=== PATIENT | female | born 1990 | race Caucasian/White ===

== ENCOUNTER → 2021-03-03 13:11 | Outpatient (BNVA) | payer OTHER, SELFPAY | PROVIDERS: PCP Family Medicine Adult Medicine; Visit Provider Physician Assistant Medical | DX: Z57.5 Occupational exposure to toxic agents in other industries (principal) | CPT/HCPCS: 99202 ==

== ENCOUNTER → 2021-03-04 14:23 | Outpatient (BNVA) | payer OTHER, SELFPAY | PROVIDERS: PCP Family Medicine Adult Medicine; Visit Provider Physician Assistant Medical | DX: Z57.5 Occupational exposure to toxic agents in other industries (principal) | CPT/HCPCS: 99213 ==

== ENCOUNTER 2023-01-21 12:57 | Emergency (ER) | payer OTHER, SELFPAY ==
[2023-01-21 13:27] VITALS: BP 141/84; PULSE 89; RESP 19; TEMP 36.6; O2SAT 100; BMI 26.8
--- NOTE | 2023-01-21 13:27 | ED.GENADULT ---
HPI - General Adult General Chief complaint: Allergic Reaction <Lewis Ridley - Last Filed: 01/21/23 13:29> Stated complaint: Allergic reaction /Itchy racing heart <Lewis Ridley - Last Filed: 01/21/23 13:29> Time Seen by Provider: 01/21/23 13:52 <Lewis Ridley - Last Filed: 01/21/23 13:29> History of Present Illness HPI narrative: Patient presents out of concern for an allergic reaction, she developed tingling around her lips and face and felt like it might be starting to swell and she took a Benadryl and came to the ER, she never had swelling of lips tongue or throat never had any difficulty breathing or swallowing, she did feel like her heart was racing Here in the ER she does not feel heart racing she has not developed any swelling or shortness of breath or impairment of breathing and swallowing but she continues to feel and itchiness and tingling around her lips <MAXIME Price - Last Filed: 01/21/23 19:25> Related Data Home medications: Previous Rx's Medication Instructions Recorded cetirizine 10 mg tablet 10 mg PO DAILY PRN allergy 01/21/23 symptoms #14 tabs prednisone 20 mg tablet 40 mg PO ONCE 1 day #2 tabs 01/21/23 <Lewis Ridley - Last Filed: 01/21/23 13:29> Allergies/adverse reactions: Allergies Allergy/AdvReac Type Severity Reaction Status Date / Time No Known Allergies Allergy Verified 01/21/23 13:26 <Lewis Ridley - Last Filed: 01/21/23 13:29> FOR[facility]LY [facility] Past Medical History Source: nursing notes reviewed <MAXIME Price - Last Filed: 01/21/23 19:25> Social History Social History: Social History Advance Directives: No Advance Directives Information Provided: No <Lewis Ridley - Last Filed: 01/21/23 13:29> Physical Exam ED Vital Signs: Vital Signs - 24 hr 01/21/23 13:27 01/21/23 13:46 Temperature 98 F Pulse Rate 89 90 Respiratory Rate 19 17 Blood Pressure 141/84 H 129/62 Pulse Oximetry 100 100 Oxygen Delivery Method Room Air Room Air BMI result Body Mass Index 26.8 <Lewis Bashir Last Filed: 01/21/23 13:29> Vital Signs - 24 hr 01/21/23 13:27 01/21/23 13:46 Temperature 98 F Pulse Rate 89 90 Respiratory Rate 19 17 Blood Pressure 141/84 H 129/62 Pulse Oximetry 100 100 Oxygen Delivery Method Room Air Room Air BMI result Body Mass Index 26.8 <MAXIME Price - Last Filed: 01/21/23 19:25> General appearance comfortable no acute distress The eyes no redness or discharge The sinuses are not congested The pharynx is clear without redness swelling or exudate, no impairment of breathing or swallowing, voice is normal no swelling of lips tongue uvula or pharynx Neck is supple Chest is clear to auscultation with full symmetric equal breath sounds no wheezing Heart no murmur Abdomen soft nontender Extremities full range of motion x4 Skin no rash visible <MAXIME Price - Last Filed: 01/21/23 19:25> Course Course Course Narrative: 32 year old female presents for evaluation of burning and itching to her face. She feels she may be having an allergic reaction. Denies any new foods, but did eat just prior to symptoms onset. No significant edema on exam. She took Benadryl 25mg PO prior to arrival <Lewis Ridley - Last Filed: 01/21/23 13:29> 32 year old female presents for evaluation of burning and itching to her face. She feels she may be having an allergic reaction. Denies any new foods, but did eat just prior to symptoms onset. No significant edema on exam. She took Benadryl 25mg PO prior to arrival Patient was treated with Claritin and prednisone and observed for over an hour with no progression of symptoms and well-appearing patient with tingling around the lips but no swelling of lips tongue uvula or throat, no impairment of breathing and swallowing, clear lungs no wheezing is discharged <MAXIME Price - Last Filed: 01/21/23 19:25> Medications Administered Discontinued Medications Generic Name Dose Route Start Last Admin Trade Name Freq PRN Reason Stop Dose Admin Loratadine 10 mg 01/21/23 14:17 01/21/23 14:27 Loratadine 10 Mg Tablet PO 01/21/23 14:18 10 mg ONCE ONE Administration Prednisone 60 mg 01/21/23 14:17 01/21/23 14:27 Prednisone 20 Mg Tablet PO 01/21/23 14:18 60 mg ONCE ONE Administration <Lewis Ridley - Last Filed: 01/21/23 13:29> Medications Administered Discontinued Medications Generic Name Dose Route Start Last Admin Trade Name Freq PRN Reason Stop Dose Admin Loratadine 10 mg 01/21/23 14:17 01/21/23 14:27 Loratadine 10 Mg Tablet PO 01/21/23 14:18 10 mg ONCE ONE Administration Prednisone 60 mg 01/21/23 14:17 01/21/23 14:27 Prednisone 20 Mg Tablet PO 01/21/23 14:18 60 mg ONCE ONE Administration <MAXIME Price - Last Filed: 01/21/23 19:25> Discharge Plan Discharge Clinical Impression: Allergic reaction <Lewis Ridley - Last Filed: 01/21/23 13:29> Patient Disposition: Home, Self-Care <Lewis Ridley - Last Filed: 01/21/23 13:29> Additional Instructions: No sign of any dangerous allergic reaction now, your exam and vital signs were very healthy and normal Use Zyrtec for the next 3-4 days, take an additional dose of steroid prednisone tomorrow Return any time for difficulty breathing throat swelling any worse condition or any concerns <Lewis Ridley - Last Filed: 01/21/23 13:29> Prescriptions: New cetirizine 10 mg tablet 10 mg PO DAILY PRN (Reason: allergy symptoms) Qty: 14 0RF prednisone 20 mg tablet 40 mg PO ONCE 1 Days Qty: 2 0RF <Lewis Ridley - Last Filed: 01/21/23 13:29> Interventions: ED Discharge Assessment Last Done: 01/21/23 15:09 <Lewis Ridley - Last Filed: 01/21/23 13:29> Discharge Date/Time: 01/21/23 15:10 <Lewis Ridley - Last Filed: 01/21/23 13:29>
[2023-01-21 13:46] VITALS: BP 129/62; PULSE 90; RESP 17; O2SAT 100
[2023-01-21] MEDS: Loratadine 10 MG TABLET PO (14:27)
[2023-01-21] MEDS: predniSONE 20 MG TABLET 60 MG PO (14:27)
== END 2023-01-21 15:10 | disposition home or self-care (01) ==
PROVIDERS: Emergency Provider Emergency Medicine Emergency Medical Services; PCP Internal Medicine
DX: L50.0 Allergic urticaria (principal)
CPT/HCPCS: 99283

== ENCOUNTER → 2024-06-23 12:31 | Outpatient (BNVA) | payer OTHER, SELFPAY | PROVIDERS: PCP Internal Medicine; Visit Provider Physician Assistant Medical | DX: Z77.21 Contact with and (suspected) exposure to potentially hazardous body fluids (principal) | CPT/HCPCS: 84450; 84460; 84702; 85025; 86706; 86803; 87389; 99203 ==

== ENCOUNTER → 2024-06-25 10:19 | Outpatient (BNVA) | payer OTHER, SELFPAY | PROVIDERS: PCP Internal Medicine; Visit Provider Physician Assistant Medical | DX: Z77.21 Contact with and (suspected) exposure to potentially hazardous body fluids (principal) | CPT/HCPCS: 99213 ==